=== PATIENT | female | born 1950 | race Two or more races ===

== ENCOUNTER 2016-12-29 07:10 | Day surgery (SDC) | payer MEDICAID ==
[~2016-12-29 07:10] MED LIST: Cataract Ophth Solution EYERT ONE; Lidocaine 4% 5 ML Amp EYERT ONE; Moxifloxacin 0.5% Ophth Soln 3 ML Bottle EYERT ONE; Sodium Chloride 0.9% 10 ML Syringe FLUSH PRN
[2016-12-29] MEDS ORDERED: Midazolam 1 MG/ML 2 ML SDV IV ONE (07:11)
[2016-12-29] MEDS ORDERED: Lidocaine 1% 30 ML SDV ONE (09:08)
[2016-12-29] MEDS ORDERED: Povidone-Iodine 5% Sterile Ophth Soln 30 ML Bottle EYERT ONE (09:09)
[2016-12-29] MEDS ORDERED: prednisoLONE Acetate 1% Ophth Susp 5 ML Bottle EYERT ONE (09:09)
[2016-12-29] MEDS ORDERED: Balanced Salt Solution Ophth Irrig 500 ML Bottle IOCULAR ONE (09:10)
[2016-12-29] MEDS ORDERED: EPINEPHrine 1 MG/ML SDV ONE (09:10)
[2016-12-29] MEDS ORDERED: Lidocaine 4% 5 ML Amp EYERT ONE (09:11)
[2016-12-29] MEDS ORDERED: Moxifloxacin 0.5% Ophth Soln 3 ML Bottle EYERT ONE (09:11)
--- NOTE | 2016-12-29 10:29 | PCM.OPNOTE ---
- General Post-Op/Procedure Note Date of Surgery/Procedure: 12/29/16 Operative Procedure(s): Cataract Extraction with intraocular lens implant, right eye Findings: As above Pre Op Diagnosis: Cataract right eye Post-Op Diagnosis: Same Anesthesia Technique: MAC Primary Surgeon: Waqas Hernandez Anesthesia Provider: radha Pathology: None EBL in mLs: 0 Complications: None Condition: Good Free Text/Narrative:: PROCEDURE: After the risks and benefits of the procedure were explained informed consent was obtained from the patient and the patient was taken to the operating room. The patient was given topical Lidocaine 4% drops in the right eye. The patient was then prepped and draped in the sterile [facility] fashion. A wire lid speculum was placed in the right eye. A clear cornea temporal approach was used. A 7515 [place] blade was used to make a paracentesis site around 11:00. Preservative-free Lidocaine 1% was injected intracamerally. Viscoelastic was placed in the anterior chamber. A 2.65 mm keratome blade was used to make a clear corneal incision around 9:00. A cystotome needle and Utrata forceps were used to perform continuous curvilinear capsulorhexis. Balanced Salt Solution was used to perform hydrodissection and hydrodelineation. The lens nucleus was removed using the divide and conquer phacoemulsification technique. Cumulative dissipated energy was 12.62. Remaining cortex was removed using irrigation- aspiration. Viscoelastic was placed in the capsular bag. PCBOO 19.0 diopter lens was then placed in the capsular bag. Remaining viscoelastic was removed using irrigation-aspiration. The lens was well centered in the capsular bag. The paracentesis and corneal incision were found to be water-tight. The patient was given topical Prednisolone and Vigamox drops. The speculum was removed and a shield was placed over the right eye. The patient was taken to recovery in stable condition. I certify that I was present for and performed the entire operative procedure. Waqas Hernandez M.D.
[2016-12-29 10:41] VITALS: BP 127/77
== END 2016-12-29 10:20 | disposition home or self-care (01) ==
LOC: DL.SDS 07:10
PROVIDERS: ATTEND Ophthalmology
DX: H25.813 Combined forms of age-related cataract, bilateral (principal); E11.9 Type 2 diabetes mellitus without complications; E78.5 Hyperlipidemia, unspecified; I10 Essential (primary) hypertension; E66.9 Obesity, unspecified; Z90.49 Acquired absence of other specified parts of digestive tract; Z98.51 Tubal ligation status; Z98.890 Other specified postprocedural states; Z88.8 Allergy status to other drugs, medicaments and biological substances; F17.210 Nicotine dependence, cigarettes, uncomplicated; Z79.84 Long term (current) use of oral hypoglycemic drugs; Z79.899 Other long term (current) drug therapy; Z68.30 Body mass index [BMI] 30.0-30.9, adult
CPT/HCPCS: 00142; 66984; A9270; J0171; J2250; J7050; V2632

== ENCOUNTER 2017-01-26 08:25 | Day surgery (SDC) | payer MEDICAID ==
[~2017-01-26 08:25] MED LIST changes: +Cataract Ophth Solution EYELF SCH; -Cataract Ophth Solution EYERT ONE; +Lidocaine 4% 5 ML Amp EYELF SCH; -Lidocaine 4% 5 ML Amp EYERT ONE; +Moxifloxacin 0.5% Ophth Soln 3 ML Bottle EYELF SCH; -Moxifloxacin 0.5% Ophth Soln 3 ML Bottle EYERT ONE
[2017-01-26] MEDS ORDERED: Midazolam 1 MG/ML 2 ML SDV IV ONE (08:26)
[2017-01-26] MEDS ORDERED: Sodium Chloride 0.9% 10 ML Syringe IV ONE (08:26)
[2017-01-26] MEDS ORDERED: Lidocaine 4% 5 ML Amp ONE (10:15)
[2017-01-26] MEDS ORDERED: Lidocaine 1% 30 ML SDV INJECT ONE (10:15)
[2017-01-26] MEDS ORDERED: Moxifloxacin 0.5% Ophth Soln 3 ML Bottle EYELF ONE (10:16)
[2017-01-26] MEDS ORDERED: prednisoLONE Acetate 1% Ophth Susp 5 ML Bottle EYELF ONE (10:16)
[2017-01-26] MEDS ORDERED: Povidone-Iodine 5% Sterile Ophth Soln 30 ML Bottle EYELF ONE (10:17)
[2017-01-26] MEDS ORDERED: Balanced Salt Solution Ophth Irrig 500 ML Bottle IOCULAR ONE (10:17)
[2017-01-26] MEDS ORDERED: EPINEPHrine 1 MG/ML SDV ONE (10:17)
[2017-01-26] MEDS ORDERED: Chondroitin/Hyaluronate Sodium Ophth Inj 0.5/0.55 ML Kit IOCULAR ONE ×3 (10:18)
--- NOTE | 2017-01-26 10:33 | PCM.OPNOTE ---
- General Post-Op/Procedure Note Date of Surgery/Procedure: 01/26/17 Operative Procedure(s): Cataract extraction with intraocular lens implant left eye Findings: As above Pre Op Diagnosis: Cataract left eye Post-Op Diagnosis: Same Anesthesia Technique: MAC Primary Surgeon: Waqas Hernandez Anesthesia Provider: Stiven Mahmood Pathology: None EBL in mLs: 0 Complications: None Condition: Good Free Text/Narrative:: PROCEDURE: After the risks and benefits of the procedure were explained informed consent was obtained from the patient and the patient was taken to the operating room. The patient was given topical Lidocaine 4% drops in the left eye. The patient was then prepped and draped in the sterile [facility] fashion. A wire lid speculum was placed in the left eye. A clear cornea temporal approach was used. A 7515 [place] blade was used to make a paracentesis site around 5:00. Preservative-free Lidocaine 1% was injected intracamerally. Viscoelastic was placed in the anterior chamber. A 2.65 mm keratome blade was used to make a clear corneal incision around 3:00. A cystotome needle and Utrata forceps were used to perform continuous curvilinear capsulorhexis. Balanced Salt Solution was used to perform hydrodissection and hydrodelineation. The lens nucleus was removed using the divide and conquer phacoemulsification technique. Cumulative dissipated energy was 11.16. Remaining cortex was removed using irrigation- aspiration. Viscoelastic was placed in the capsular bag. PCBOO 20.0 diopter lens was then placed in the capsular bag. Remaining viscoelastic was removed using irrigation-aspiration. The lens was well centered in the capsular bag. The paracentesis and corneal incision were found to be water-tight. The patient was given topical Prednisolone and Vigamox drops. The speculum was removed and a shield was placed over the left eye. The patient was taken to recovery in stable condition. I certify that I was present for and performed the entire operative procedure. Waqas Hernandez M.D.
[2017-01-26 11:13] VITALS: BP 146/67
== END 2017-01-26 11:10 | disposition home or self-care (01) ==
LOC: DL.SDS 08:25
PROVIDERS: ATTEND Ophthalmology
DX: H25.813 Combined forms of age-related cataract, bilateral (principal); I10 Essential (primary) hypertension; E11.9 Type 2 diabetes mellitus without complications; E78.5 Hyperlipidemia, unspecified; E66.9 Obesity, unspecified; Z90.49 Acquired absence of other specified parts of digestive tract; Z98.51 Tubal ligation status; F17.210 Nicotine dependence, cigarettes, uncomplicated; Z79.84 Long term (current) use of oral hypoglycemic drugs; Z79.899 Other long term (current) drug therapy; Z88.8 Allergy status to other drugs, medicaments and biological substances; Z68.31 Body mass index [BMI] 31.0-31.9, adult
CPT/HCPCS: 00142; 66984; A9270; J0171; J2250; J7050; V2632

== ENCOUNTER 2017-04-27 19:40 | Emergency (ER) | payer MEDICAID ==
[2017-04-27 20:27] LABS: CHLORIDE,CL 96 mmol/L (101-111); SODIUM,NA 130 mmol/L (135-145)
[2017-04-27] MEDS ORDERED: Acetaminophen 325 MG Tab PO ONE (20:42)
--- NOTE | 2017-04-27 20:58 | EDM.PDOC ---
ED HPI GENERAL MEDICAL PROBLEM - General Chief Complaint: Headache Stated Complaint: BY AMBULANCE Time Seen by Provider: 04/27/17 19:45 Source of Information: Reports: Patient History Limitations: Reports: No Limitations - History of Present Illness INITIAL COMMENTS - FREE TEXT/NARRATIVE: ED via [facility] with c/o headache for past week, reports at back of head but all over. Has not noted anything that will make it better or worse. Has not taken anything to relieve pain. Just decided tonight she should have it checked out. Denied any recent falls. No awareness of fever. Residing at [facility]. Per EMS staff there unaware that patient had called for ambulance. Headache Pain Score (Numeric/FACES): 2 - Related Data Allergies Allergy/AdvReac Type Severity Reaction Status Date / Time rosuvastatin calcium Allergy Cannot Verified 04/27/17 19:52 [From [facility]] Remember Home Meds: Home Meds Lisinopril 5 mg PO DAILY 03/28/13 [History] Haloperidol Decanoate 50 mg IM .MONTHLY 07/30/14 [History] Metoprolol Succinate 50 mg PO DAILY 08/19/15 [History] Benztropine Mesylate 1 mg PO BID 09/26/15 [History] Furosemide [Lasix] 20 mg PO DAILY 09/26/15 [History] Pantoprazole Sodium [Protonix] 20 mg PO DAILY 09/26/15 [History] atorvaSTATin Calcium [Atorvastatin Calcium] 20 mg PO DAILY 09/26/15 [History] metFORMIN [Glucophage XR] 500 mg PO BID 09/26/15 [History] Budesonide/Formoterol [Symbicort 160-4.5 MCG] 2 puff INH BID 11/04/15 [History] Isosorbide Mononitrate [Imdur] 30 mg PO DAILY 11/04/15 [History] Insulin Detemir [Levemir Flextouch] 50 units SQ BID 11/19/15 [History] Albuterol [IJD: Albuterol] 1 vial INH Q4H PRN 12/29/16 [History] Dextromethorphan/guaiFENesin [Robitussin DM] 1 dose PO QID PRN 12/29/16 [History ] Ferrous Fumarate [Ferrocite] 325 tab PO DAILY 12/29/16 [History] Insulin Aspart [NovoLOG] 15 units SQ TIDMEALS 12/29/16 [History] Vitamin E 1 cap PO DAILY 12/29/16 [History] Past Medical History HEENT History: Reports: Cataract, Other (See Below) Other HEENT History: UPPER AND LOWER DENTURES Cardiovascular History: Reports: CAD, Heart Failure, High Cholesterol, Hypertension Respiratory History: Reports: COPD, Intubation, Previous, Pneumonia, Recurrent, Sleep Apnea, SOB Other Respiratory History: Emphysema Gastrointestinal History: Reports: Chronic Constipation, Diverticulosis, GERD Other Gastrointestinal History: questionable GI bleed 11/04/15 Genitourinary History: Reports: UTI, Recurrent Other Genitourinary History: blood infection. 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: Musculoskeletal History: Reports: Osteoarthritis Neurological History: Reports: CVA, Neuropathy, Diabetic Psychiatric History: Reports: Addiction, Anxiety, Depression, Psychosis, Other ( See Below) Other Psychiatric History: nicotine addiction Endocrine/Metabolic History: Reports: Diabetes, Type II, IDDM, Obesity/BMI 30+ Hematologic History: Reports: Anemia Immunologic History: Reports: None Oncologic (Cancer) History: Reports: None Dermatologic History: Reports: None - Past Surgical History Head Surgeries/Procedures: Reports: None HEENT Surgical History: Reports: Cataract Surgery Cardiovascular Surgical History: Reports: None, Vascular Surgery Other Cardiovascular Surgeries/Procedures: varicose vein stripping Respiratory Surgical History: Reports: None GI Surgical History: Reports: Appendectomy, Cholecystectomy, Colonoscopy, EGD Female Surgical History: Reports: D&C Neurological Surgical History: Reports: None Musculoskeletal Surgical History: Reports: Other (See Below) Other Musculoskeletal Surgeries/Procedures:: toe surg, wrist osteotomy Oncologic Surgical History: Reports: None Dermatological Surgical History: Reports: None Social & Family History - Family History Family Medical History: Noncontributory Cardiac: Reports: Afib, CAD, Heart Failure, High Cholesterol, Hypertension, [place] Respiratory: Reports: Asthma, COPD GI: Reports: Cholelithiasis : Reports: Renal Disease/Insufficiency Neurological: Reports: CVA Psychiatric: Reports: Anxiety, Depression Endocrine/Metabolic: Reports: Diabetes, type II, Obesity/MBI 30+ - Tobacco Use Smoking Status *Q: Current Every Day Smoker Years of Tobacco use: 30 Packs/Tins Daily: 1.5 Used Tobacco, but Quit: No Second Hand Smoke Exposure: Yes - Caffeine Use Caffeine Use: Reports: Coffee - Alcohol Use Days Per Week of Alcohol Use: 3 Number of Drinks Per Day: 2 Total Drinks Per Week: 6 - Recreational Drug Use Recreational Drug Use: No - Living Situation & Occupation Living situation: Reports: Alone Occupation: Disabled ED ROS GENERAL - Review of Systems Review Of Systems: See Below Constitutional: Reports: No Symptoms HEENT: Reports: No Symptoms Respiratory: Reports: No Symptoms Cardiovascular: Reports: No Symptoms GI/Abdominal: Reports: No Symptoms Musculoskeletal: Reports: No Symptoms Skin: Reports: No Symptoms Neurological: Reports: Headache (general rates 2/10 for past week, ) - Physical Exam Exam: See Below Exam Limited By: No Limitations General Appearance: Alert, No Apparent Distress Eye Exam: Bilateral Eye: EOMI, Normal Fundi, PERRL Ears: Normal External Exam Nose: Normal Inspection Throat/Mouth: Normal Lips. No: Normal Teeth (absent) Head Exam: Atraumatic, Normocephalic. No: Scalp Tenderness, Facial Tenderness, Sinus Tenderness Neck: Normal Inspection, Full Range of Motion. No: Tender Lateral, Tender Midline Respiratory/Chest: Lungs Clear, Normal Breath Sounds. No: No Respiratory Distress Cardiovascular: Normal Peripheral Pulses, Regular Rate, Rhythm, No Edema GI/Abdominal: Normal Bowel Sounds, Soft, Non-Tender Neuro Exam (Abbreviated): Alert, Oriented, Normal Cognition, No Motor/Sensory Deficits Back Exam: Normal Inspection Psychiatric: Normal Affect Skin Exam: Warm, Dry, Intact, Normal Color Course - Vital Signs Last Recorded V/S: Last Vital Signs Temp 98.5 F 04/27/17 21:05 Pulse 91 04/27/17 21:05 Resp 18 04/27/17 21:05 BP 136/56 L 04/27/17 21:05 Pulse Ox 95 04/27/17 21:05 - Orders/Labs/Meds Labs: Laboratory Tests 04/27/17 04/27/17 04/27/17 Range/Units 20:02 20:02 20:23 WBC 13.3 H (5.0-10.0) 10^3/uL RBC 4.73 (4.2-5.4) 10^6/uL Hgb 11.8 L D (12.0-16.0) g/dL Hct 36.4 L (37.0-47.0) % MCV 77.0 L D (80-100) fL MCH 24.9 L (27.0-34.0) pg MCHC 32.4 L (33.0-35.0) g/dL Plt Count 322 D (150-450) 10^3/uL Neut % (Auto) 65.3 (42.2-75.2) % Lymph % (Auto) 24.3 (20.5-50.1) % [place] % (Auto) 8.2 H (2-8) % Eos % (Auto) 1.7 (1.0-3.0) % Baso % (Auto) 0.5 (0.0-1.0) % Sodium 130 L (135-145) mmol/L Potassium 3.8 (3.6-5.0) mmol/L Chloride 96 L (101-111) mmol/L Carbon Dioxide 25.0 (21.0-31.0) mmol/L Anion Gap 12.8 BUN 12 (7-18) mg/dL Creatinine 0.9 (0.6-1.3) mg/dL Est Cr Clr Drug Dosing 59.12 mL/min Estimated GFR (MDRD) > 60 BUN/Creatinine Ratio 13.33 Glucose 115 H (74-105) mg/dL Calcium 8.5 (8.4-10.2) mg/dl Total Bilirubin 0.3 (0.2-1.0) mg/dL AST 23 (10-42) IU/L ALT 19 (10-60) IU/L Alkaline Phosphatase 74 (42-121) IU/L Total Protein 7.1 (6.7-8.2) g/dl Albumin 3.8 (3.2-5.5) g/dl Globulin 3.3 Albumin/Globulin Ratio 1.15 Urine Color Yellow (YELLOW) Urine Appearance Clear (CLEAR) Urine pH 6.5 (5.0-9.0) Ur Specific [place] 1.010 (1.005-1.030) Urine Protein Negative (NEGATIVE) Urine Glucose (UA) Negative (NEGATIVE) Urine Ketones Negative (NEGATIVE) Urine Occult Blood Negative (NEGATIVE) Urine Nitrite Negative (NEGATIVE) Urine Bilirubin Negative (NEGATIVE) Urine Urobilinogen 0.2 (0.2-1.0) mg/dL Ur Leukocyte Esterase Negative (NEGATIVE) Urine RBC 0-5 /HPF Urine WBC 0-5 (0-5/HPF) /HPF Ur Epithelial Cells Rare /HPF Urine Bacteria Rare (0-FEW/HPF) /HPF Meds: Medications Discontinued Medications Generic Name Dose Route Start Last Admin Trade Name Brian PRN Reason Stop Dose Admin Acetaminophen 650 mg 04/27/17 20:42 04/27/17 20:55 Tylenol PO 04/27/17 20:43 650 mg NOW ONE Administration - Radiology Interpretation Free Text/Narrative:: Head CT, No acute process Departure - Departure Time of Disposition: 20:53 Disposition: DC/Tfer to Skilled Nursing [facility] 65 Condition: Good Clinical Impression: Headache Qualifiers: Headache type: unspecified Headache chronicity pattern: unspecified pattern Intractability: not intractable Qualified Code(s): R51 - Headache - Discharge Information Instructions: General Headache Without Cause Referrals: PCP,Unobtain [Primary Care Provider] - Forms: ED Department Discharge Additional Instructions: Tylenol 650mg every 4 hours as needed for headache complaint, not to exceed 3 Grams in 24 hours clinic follow up 2-3 days if not improving continue current medications
[2017-04-27 21:06] VITALS: BP 136/56
== END 2017-04-27 21:20 ==
LOC: DL.ED 19:40
DX: R51 Headache (principal); I11.0 Hypertensive heart disease with heart failure; I50.9 Heart failure, unspecified; E11.40 Type 2 diabetes mellitus with diabetic neuropathy, unspecified; F17.210 Nicotine dependence, cigarettes, uncomplicated; J44.9 Chronic obstructive pulmonary disease, unspecified; Z88.8 Allergy status to other drugs, medicaments and biological substances; Z79.899 Other long term (current) drug therapy; Z79.84 Long term (current) use of oral hypoglycemic drugs; Z79.4 Long term (current) use of insulin
CPT/HCPCS: 36415; 70450; 80053; 81001; 85025; 99284; A9270-GY

== ENCOUNTER 2018-08-11 18:48 | Emergency (ER) | payer MEDICARE, MEDICAID ==
[2018-08-11 18:57] VITALS: BP 172/82
--- NOTE | 2018-08-11 19:23 | EDM.PDOC ---
ED HPI GENERAL MEDICAL PROBLEM - General Chief Complaint: General Stated Complaint: HARD TIME BREATHING Time Seen by Provider: 08/11/18 19:19 Source of Information: Reports: Patient History Limitations: Reports: No Limitations - History of Present Illness INITIAL COMMENTS - FREE TEXT/NARRATIVE: c/o sob all afternoon, diabetic, did eat but feel weak no energy, also been having memory lost past month. no real chest pain or abd pain but feels nauseous on-off, denies vertigo. unable to describe how she feels. - Related Data Allergies Allergy/AdvReac Type Severity Reaction Status Date / Time rosuvastatin calcium Allergy Cannot Verified 08/11/18 18:52 [From Crestor] Remember Home Meds: Home Meds Lisinopril 5 mg PO DAILY 03/28/13 [History] Haloperidol Decanoate 50 mg IM .MONTHLY 07/30/14 [History] Metoprolol Succinate 50 mg PO DAILY 08/19/15 [History] Benztropine Mesylate 1 mg PO BID 09/26/15 [History] Furosemide [Lasix] 20 mg PO DAILY 09/26/15 [History] Pantoprazole Sodium [Protonix] 20 mg PO DAILY 09/26/15 [History] atorvaSTATin Calcium [Atorvastatin Calcium] 20 mg PO DAILY 09/26/15 [History] metFORMIN [Glucophage XR] 500 mg PO BID 09/26/15 [History] Budesonide/Formoterol [Symbicort 160-4.5 MCG] 2 puff INH BID 11/04/15 [History] Isosorbide Mononitrate [Imdur] 30 mg PO DAILY 11/04/15 [History] Insulin Detemir [Levemir Flextouch] 50 units SQ BID 11/19/15 [History] Albuterol [IJD: Albuterol] 1 vial INH Q4H PRN 12/29/16 [History] Dextromethorphan/guaiFENesin [Robitussin DM] 1 dose PO QID PRN 12/29/16 [History ] Ferrous Fumarate [Ferrocite] 325 tab PO DAILY 12/29/16 [History] Insulin Aspart [NovoLOG] 15 units SQ TIDMEALS 12/29/16 [History] Vitamin E 1 cap PO DAILY 12/29/16 [History] Past Medical History HEENT History: Reports: Cataract, Other (See Below) Other HEENT History: UPPER AND LOWER DENTURES Cardiovascular History: Reports: CAD, Heart Failure, High Cholesterol, Hypertension Respiratory History: Reports: COPD, Intubation, Previous, Pneumonia, Recurrent, Sleep Apnea, SOB Other Respiratory History: Emphysema Gastrointestinal History: Reports: Chronic Constipation, Diverticulosis, GERD Other Gastrointestinal History: questionable GI bleed 11/04/15 Genitourinary History: Reports: UTI, Recurrent Other Genitourinary History: blood infection. 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: Musculoskeletal History: Reports: Osteoarthritis Neurological History: Reports: CVA, Neuropathy, Diabetic Psychiatric History: Reports: Addiction, Anxiety, Depression, Psychosis, Other ( See Below) Other Psychiatric History: nicotine addiction Endocrine/Metabolic History: Reports: Diabetes, Type II, IDDM, Obesity/BMI 30+ Hematologic History: Reports: Anemia Immunologic History: Reports: None Oncologic (Cancer) History: Reports: None Dermatologic History: Reports: None - Past Surgical History Head Surgeries/Procedures: Reports: None HEENT Surgical History: Reports: Cataract Surgery Cardiovascular Surgical History: Reports: None, Vascular Surgery Other Cardiovascular Surgeries/Procedures: varicose vein stripping Respiratory Surgical History: Reports: None GI Surgical History: Reports: Appendectomy, Cholecystectomy, Colonoscopy, EGD Female Surgical History: Reports: D&C Neurological Surgical History: Reports: None Musculoskeletal Surgical History: Reports: Other (See Below) Other Musculoskeletal Surgeries/Procedures:: toe surg, wrist osteotomy Oncologic Surgical History: Reports: None Dermatological Surgical History: Reports: None Social & Family History - Family History Family Medical History: Noncontributory Cardiac: Reports: Afib, CAD, Heart Failure, High Cholesterol, Hypertension, [place] Respiratory: Reports: Asthma, COPD GI: Reports: Cholelithiasis : Reports: Renal Disease/Insufficiency Neurological: Reports: CVA Psychiatric: Reports: Anxiety, Depression Endocrine/Metabolic: Reports: Diabetes, type II, Obesity/MBI 30+ - Tobacco Use Smoking Status *Q: Current Every Day Smoker Years of Tobacco use: 40 Packs/Tins Daily: 1 Second Hand Smoke Exposure: No - Caffeine Use Caffeine Use: Reports: Coffee - Recreational Drug Use Recreational Drug Use: No - Living Situation & Occupation Living situation: Reports: Alone Occupation: Disabled ED ROS GENERAL - Review of Systems Review Of Systems: ROS reveals no pertinent complaints other than HPI. ED EXAM, GENERAL - Physical Exam Exam: See Below Exam Limited By: No Limitations General Appearance: Alert, WD/WN, No Apparent Distress, Other (distraught) Eye Exam: Bilateral Eye: PERRL (pupils ess ER @ 4mm) Ears: Hearing Grossly Normal Throat/Mouth: Normal Voice, No Airway Compromise Head: Atraumatic Neck: Non-Tender, Full Range of Motion Respiratory/Chest: No Respiratory Distress Cardiovascular: Regular Rate, Rhythm GI/Abdominal: Soft, Non-Tender Neurological: Alert, Oriented, Normal Cognition, Normal Gait, No Motor/Sensory Deficits Psychiatric: Flat Affect Skin Exam: Warm, Dry, Normal Color Lymphatic: No Adenopathy Course - Vital Signs Last Recorded V/S: Last Vital Signs Temp 35.6 C 08/11/18 18:53 Pulse Resp 15 08/11/18 18:53 BP 172/82 H 08/11/18 18:53 Pulse Ox 98 08/11/18 18:53 - Orders/Labs/Meds Orders: Active Orders 24 hr Category Date Time Status EKG Documentation Completion [RC] STAT Care 08/11/18 19:17 Active CULTURE URINE [RM] Stat Lab 08/11/18 20:16 Received Labs: Laboratory Tests 08/11/18 08/11/18 08/11/18 Range/Units 18:55 19:29 19:29 WBC 12.6 H (5.0-10.0) 10^3/uL RBC 5.04 (4.2-5.4) 10^6/uL Hgb 12.1 (12.0-16.0) g/dL Hct 37.7 (37.0-47.0) % MCV 74.8 L (80-100) fL MCH 24.0 L (27.0-34.0) pg MCHC 32.1 L (33.0-35.0) g/dL Plt Count 400 D (150-450) 10^3/uL Neut % (Auto) 73.6 (42.2-75.2) % Lymph % (Auto) 18.0 L (20.5-50.1) % [place] % (Auto) 6.5 (2-8) % Eos % (Auto) 1.4 (1.0-3.0) % Baso % (Auto) 0.5 (0.0-1.0) % D-Dimer, Quantitative 279 (0-400) ng/mL Sodium (135-145) mmol/L Potassium (3.6-5.0) mmol/L Chloride (101-111) mmol/L Carbon Dioxide (21.0-31.0) mmol/L Anion Gap BUN (7-18) mg/dL Creatinine (0.6-1.3) mg/dL Est Cr Clr Drug Dosing mL/min Estimated GFR (MDRD) BUN/Creatinine Ratio Glucose (74-105) mg/dL POC Glucose 183 H (70-105) mg/dl Calcium (8.4-10.2) mg/dl Total Bilirubin (0.2-1.0) mg/dL AST (10-42) IU/L ALT (10-60) IU/L Alkaline Phosphatase (42-121) IU/L Troponin I (0.00-0.02) ng/ml B-Natriuretic Peptide (0-100) pg/ml Total Protein (6.7-8.2) g/dl Albumin (3.2-5.5) g/dl Globulin Albumin/Globulin Ratio Urine Color (YELLOW) Urine Appearance (CLEAR) Urine pH (5.0-9.0) Ur Specific [place] (1.005-1.030) Urine Protein (NEGATIVE) Urine Glucose (UA) (NEGATIVE) Urine Ketones (NEGATIVE) Urine Occult Blood (NEGATIVE) Urine Nitrite (NEGATIVE) Urine Bilirubin (NEGATIVE) Urine Urobilinogen (0.2-1.0) mg/dL Ur Leukocyte Esterase (NEGATIVE) Urine RBC /HPF Urine WBC (0-5/HPF) /HPF Ur Epithelial Cells (NOT SEEN) /HPF Amorphous Sediment (NOT SEEN) /HPF Urine Bacteria (0-FEW/HPF) /HPF Urine Mucus (NOT SEEN) /LPF 08/11/18 08/11/18 Range/Units 19:29 20:16 WBC (5.0-10.0) 10^3/uL RBC (4.2-5.4) 10^6/uL Hgb (12.0-16.0) g/dL Hct (37.0-47.0) % MCV (80-100) fL MCH (27.0-34.0) pg MCHC (33.0-35.0) g/dL Plt Count (150-450) 10^3/uL Neut % (Auto) (42.2-75.2) % Lymph % (Auto) (20.5-50.1) % [place] % (Auto) (2-8) % Eos % (Auto) (1.0-3.0) % Baso % (Auto) (0.0-1.0) % D-Dimer, Quantitative (0-400) ng/mL Sodium 130 L (135-145) mmol/L Potassium 3.9 (3.6-5.0) mmol/L Chloride 96 L (101-111) mmol/L Carbon Dioxide 21.0 (21.0-31.0) mmol/L Anion Gap 16.9 BUN 11 (7-18) mg/dL Creatinine 0.8 (0.6-1.3) mg/dL Est Cr Clr Drug Dosing 49.69 mL/min Estimated GFR (MDRD) > 60 BUN/Creatinine Ratio 13.75 Glucose 177 H (74-105) mg/dL POC Glucose (70-105) mg/dl Calcium 8.6 (8.4-10.2) mg/dl Total Bilirubin 0.5 (0.2-1.0) mg/dL AST 27 (10-42) IU/L ALT 21 (10-60) IU/L Alkaline Phosphatase 95 (42-121) IU/L Troponin I < 0.02 (0.00-0.02) ng/ml B-Natriuretic Peptide 55 (0-100) pg/ml Total Protein 7.7 (6.7-8.2) g/dl Albumin 4.0 (3.2-5.5) g/dl Globulin 3.7 Albumin/Globulin Ratio 1.08 Urine Color Yellow (YELLOW) Urine Appearance Cloudy (CLEAR) Urine pH 6.0 (5.0-9.0) Ur Specific [place] 1.010 (1.005-1.030) Urine Protein Negative (NEGATIVE) Urine Glucose (UA) Negative (NEGATIVE) Urine Ketones Negative (NEGATIVE) Urine Occult Blood Trace-intact H (NEGATIVE) Urine Nitrite Positive H (NEGATIVE) Urine Bilirubin Negative (NEGATIVE) Urine Urobilinogen 0.2 (0.2-1.0) mg/dL Ur Leukocyte Esterase Large H (NEGATIVE) Urine RBC 5-10 H /HPF Urine WBC >100 H (0-5/HPF) /HPF Ur Epithelial Cells Rare (NOT SEEN) /HPF Amorphous Sediment Occasional (NOT SEEN) /HPF Urine Bacteria Many H (0-FEW/HPF) /HPF Urine Mucus Not seen (NOT SEEN) /LPF Meds: Medications Discontinued Medications Generic Name Dose Route Start Last Admin Trade Name Brian PRN Reason Stop Dose Admin Ceftriaxone Sodium 1 gm/ 50 mls @ 50 mls/hr 08/11/18 21:03 08/11/18 21:10 Sodium Chloride IV 08/11/18 22:02 50 mls/hr ONETIME ONE Administration - Re-Assessments/Exams Free Text/Narrative Re-Assessment/Exam: 08/11/18 21:04 results discussed with pt. Departure - Departure Time of Disposition: 22:09 Disposition: Home, Self-Care 01 Condition: Good Clinical Impression: UTI (urinary tract infection) Qualifiers: Urinary tract infection type: site unspecified Hematuria presence: without hematuria Qualified Code(s): N39.0 - Urinary tract infection, site not specified - Discharge Information Instructions: Urinary Tract Infection, Adult, [id number] Referrals: PCP,None [Primary Care Provider] - Forms: ED Department Discharge Additional Instructions: 1) drink lots of liquids 2) take tylenol or motrin as needed for fever 3) follow up at clinic rx given; keflex 250mg qid x 40 - My Orders Last 24 Hours: My Active Orders 08/11/18 19:17 EKG Documentation Completion [RC] STAT 08/11/18 20:16 CULTURE URINE [RM] Stat - Assessment/Plan Last 24 Hours: My Active Orders 08/11/18 19:17 EKG Documentation Completion [RC] STAT 08/11/18 20:16 CULTURE URINE [RM] Stat
[2018-08-11 19:55] LABS: ANION GAP 16.9; CHLORIDE,CL 96 mmol/L (101-111); SODIUM,NA 130 mmol/L (135-145)
[2018-08-11] MEDS ORDERED: cefTRIAXone 1 GM in Sodium Chloride 0.9% 50 ML IV ONE (21:03)
== END 2018-08-11 22:13 | disposition home or self-care (01) ==
LOC: DL.ED 18:48
DX: N39.0 Urinary tract infection, site not specified (principal); I11.0 Hypertensive heart disease with heart failure; I50.9 Heart failure, unspecified; I25.10 Atherosclerotic heart disease of native coronary artery without angina pectoris; E11.40 Type 2 diabetes mellitus with diabetic neuropathy, unspecified; F41.9 Anxiety disorder, unspecified; F32.9 Major depressive disorder, single episode, unspecified; K21.9 Gastro-esophageal reflux disease without esophagitis; Z79.4 Long term (current) use of insulin; Z79.899 Other long term (current) drug therapy
CPT/HCPCS: 36415; 70450; 71045; 80053; 81001; 82962; 83880; 84484; 85025; 85379; 87086; 87088; 87186; 93005; 96365; 99285; J0696; J7050

== ENCOUNTER 2020-03-20 22:06 | Emergency (ER) | payer MEDICARE, MEDICAID ==
--- NOTE | 2020-03-20 22:25 | CR ---
PROCEDURE INFORMATION: Exam: XR Chest, 1 View Exam date and time: 03/20/2020 10:14 PM Age: 69 years old Clinical indication: Other: SOB TECHNIQUE: Imaging protocol: XR of the chest Views: 1 view. Total images: 1 COMPARISON: CR Chest 1V Frontal 09/10/2018 1:59 PM FINDINGS: Limitations: Overlying soft tissues limit evaluation. Lungs: Unremarkable. No consolidation. Pleural spaces: Unremarkable. No pleural effusion. No pneumothorax. Heart/Mediastinum: Unremarkable. No cardiomegaly. Bones/joints: Unremarkable. IMPRESSION: No acute process.
[2020-03-20 22:30] LABS: ANION GAP 17.7 mEq/L (7-13); CHLORIDE,CL 97 mmol/L (98-107); SODIUM,NA 135 mmol/L (136-145)
[2020-03-20] MEDS ORDERED: methylPREDNISolone Sodium Succinate 125 MG/2 ML SDV IVPUSH ONE (22:48)
[2020-03-20 23:08] VITALS: BP 153/71; PULSE 83
[2020-03-20] MEDS ORDERED: Levofloxacin 500 MG Tab PO ONE (23:14)
--- NOTE | 2020-03-20 23:23 | EDM.PDOC ---
ED HPI GENERAL MEDICAL PROBLEM - General Chief Complaint: Respiratory Problem Stated Complaint: [facility] Time Seen by Provider: 03/20/20 22:10 Source of Information: Reports: Patient, RN History Limitations: Reports: No Limitations - History of Present Illness INITIAL COMMENTS - FREE TEXT/NARRATIVE: ED via [facility] with c/o SOB, Onset this dane, smoker, chronic cough. No reported fever or chills, No nausea or vomiting. Denies urinary sx. COVID in December. Smoker 5 per day. - Related Data Allergies Allergy/AdvReac Type Severity Reaction Status Date / Time codeine Allergy Cannot Verified 03/20/20 21:56 Remember morphine Allergy Cannot Verified 03/20/20 21:56 Remember oxycodone Allergy Cannot Verified 03/20/20 21:56 Remember rosuvastatin calcium Allergy Cannot Verified 03/20/20 21:56 [From Crestor] Remember Home Meds: Home Meds Lisinopril 5 mg PO DAILY 03/28/13 [History] Haloperidol Decanoate 50 mg IM .MONTHLY 07/30/14 [History] Metoprolol Succinate 50 mg PO DAILY 08/19/15 [History] Benztropine Mesylate 0.5 mg PO TID 09/26/15 [History] Furosemide [Lasix] 20 mg PO DAILY 09/26/15 [History] Pantoprazole Sodium [Protonix] 20 mg PO DAILY 09/26/15 [History] atorvaSTATin Calcium [Atorvastatin Calcium] 20 mg PO DAILY 09/26/15 [History] metFORMIN [Glucophage XR] 500 mg PO BID 09/26/15 [History] Budesonide/Formoterol [Symbicort 160-4.5 MCG] 2 puff INH BID 11/04/15 [History] Isosorbide Mononitrate [Imdur] 30 mg PO DAILY 11/04/15 [History] Insulin Detemir [Levemir Flextouch] 57 units SQ BID 11/19/15 [History] Albuterol [IJD: Albuterol] 1 vial INH Q4H PRN 12/29/16 [History] Insulin Aspart [NovoLOG] 22 units SQ TIDMEALS 12/29/16 [History] Vitamin E 1 cap PO DAILY 12/29/16 [History] Past Medical History HEENT History: Reports: Cataract, Other (See Below) Other HEENT History: UPPER AND LOWER DENTURES Cardiovascular History: Reports: CAD, Heart Failure, High Cholesterol, Hypertension Respiratory History: Reports: COPD, Intubation, Previous, Pneumonia, Recurrent, Sleep Apnea, SOB Other Respiratory History: Emphysema Gastrointestinal History: Reports: Chronic Constipation, Diverticulosis, GERD Other Gastrointestinal History: questionable GI bleed 11/04/15 Genitourinary History: Reports: UTI, Recurrent Other Genitourinary History: blood infection. States it may have been from a UTI [employer] History: Reports: Musculoskeletal History: Reports: Osteoarthritis Neurological History: Reports: CVA, Neuropathy, Diabetic Psychiatric History: Reports: Addiction, Anxiety, Depression, Psychosis, Other (See Below) Other Psychiatric History: nicotine addiction Endocrine/Metabolic History: Reports: Diabetes, Type II, IDDM, Obesity/BMI 30+ Hematologic History: Reports: Anemia Immunologic History: Reports: None Oncologic (Cancer) History: Reports: None Dermatologic History: Reports: None - Infectious Disease History Infectious Disease History: Reports: Novel Coronavirus - Past Surgical History Head Surgeries/Procedures: Reports: None HEENT Surgical History: Reports: Cataract Surgery Cardiovascular Surgical History: Reports: None, Vascular Surgery Other Cardiovascular Surgeries/Procedures: varicose vein stripping Respiratory Surgical History: Reports: None GI Surgical History: Reports: Appendectomy, Cholecystectomy, Colonoscopy, EGD Female Surgical History: Reports: D&C Neurological Surgical History: Reports: None Musculoskeletal Surgical History: Reports: Other (See Below) Other Musculoskeletal Surgeries/Procedures:: toe surg, wrist osteotomy Oncologic Surgical History: Reports: None Dermatological Surgical History: Reports: None Social & Family History - Family History Family Medical History: No Pertinent Family History Cardiac: Reports: Afib, CAD, Heart Failure, High Cholesterol, Hypertension, [place] Respiratory: Reports: Asthma, COPD GI: Reports: Cholelithiasis : Reports: Renal Disease/Insufficiency Neurological: Reports: CVA Psychiatric: Reports: Anxiety, Depression Endocrine/Metabolic: Reports: Diabetes, type II, Obesity/MBI 30+ - Tobacco Use Tobacco Use Status *Q: Current Every Day Tobacco User Years of Tobacco use: 50 Packs/Tins Daily: 0.5 - Caffeine Use Caffeine Use: Reports: None - Recreational Drug Use Recreational Drug Use: No - Living Situation & Occupation Living situation: Reports: Alone Occupation: Disabled ED ROS GENERAL - Review of Systems Review Of Systems: Comprehensive ROS is negative, except as noted in HPI. ED EXAM, GENERAL - Physical Exam Exam: See Below Exam Limited By: No Limitations General Appearance: Alert, No Apparent Distress, Obese Eye Exam: Bilateral Eye: EOMI Ears: Normal External Exam, Hearing Grossly Normal Nose: Normal Inspection Throat/Mouth: Normal Inspection Head: Atraumatic, Normocephalic Neck: Normal Inspection Respiratory/Chest: No Respiratory Distress, Decreased Breath Sounds, Rales (bilateral bases, improve with cough), Other (occasional dry cough) Cardiovascular: Regular Rate, Rhythm, No Edema GI/Abdominal: Normal Bowel Sounds, Soft, Non-Tender Back Exam: Full Range of Motion Extremities: Normal Inspection, Normal Range of Motion Neurological: Alert Psychiatric: Normal Affect, Normal Mood Skin Exam: Warm, Dry, Intact, Normal Color Course - Vital Signs Last Recorded V/S: Last Vital Signs Temp 96.6 F L 03/20/20 21:56 Pulse 83 03/20/20 22:45 Resp 24 H 03/20/20 21:56 BP 153/71 H 03/20/20 22:45 Pulse Ox 97 03/20/20 21:56 - Orders/Labs/Meds Orders: Active Orders 24 hr Category Date Time Status EKG Documentation Completion [RC] STAT Care 03/20/20 21:52 Active CULTURE URINE [RM] Urgent Lab 03/20/20 22:48 Received Labs: Laboratory Tests 03/20/20 03/20/20 03/20/20 Range/Units 22:00 22:00 22:48 WBC 11.9 H (5.0-10.0) 10^3/uL RBC 4.98 (4.2-5.4) 10^6/uL Hgb 13.9 D (12.0-16.0) g/dL Hct 41.2 (37.0-47.0) % MCV 82.7 D (80-100) fL MCH 27.9 (27.0-34.0) pg MCHC 33.7 (33.0-35.0) g/dL Plt Count 309 (150-450) 10^3/uL Neut % (Auto) 67.1 (42.2-75.2) % Lymph % (Auto) 23.3 (20.5-50.1) % [place] % (Auto) 7.3 (2-8) % Eos % (Auto) 1.9 (1.0-3.0) % Baso % (Auto) 0.4 (0.0-1.0) % Sodium 135 L (136-145) mmol/L Potassium 3.7 (3.5-5.1) mmol/L Chloride 97 L (98-107) mmol/L Carbon Dioxide 24 (21-32) mmol/L Anion Gap 17.7 H (7-13) mEq/L BUN 10 (7-18) mg/dL Creatinine 1.00 (0.55-1.02) mg/dL Est Cr Clr Drug Dosing 51.10 mL/min Estimated GFR (MDRD) 55 BUN/Creatinine Ratio 10.0 (No establ ref range) Glucose 217 H (74-99) mg/dL Calcium 8.8 (8.5-10.1) mg/dL Magnesium 1.7 L (1.8-2.4) mg/dL Total Bilirubin 0.3 (0.2-1.0) mg/dL AST 16 (15-37) U/L ALT 28 (14-59) U/L Alkaline Phosphatase 108 (46-116) U/L Troponin I < 0.017 (0.000-0.056) ng/mL B-Natriuretic Peptide 47 (0-100) pg/ml Total Protein 7.8 (6.4-8.2) g/dL Albumin 3.7 (3.4-5.0) g/dL Globulin 4.1 Albumin/Globulin Ratio 0.9 Amylase 23 L (25-115) U/L Lipase 142 (73-393) U/L Urine Color Yellow (YELLOW) Urine Appearance Slightly cloudy (CLEAR) Urine pH 7.0 (5.0-9.0) Ur Specific [place] 1.010 (1.005-1.030) Urine Protein Negative (NEGATIVE) Urine Glucose (UA) Negative (NEGATIVE) Urine Ketones Negative (NEGATIVE) Urine Occult Blood Negative (NEGATIVE) Urine Nitrite Positive H (NEGATIVE) Urine Bilirubin Negative (NEGATIVE) Urine Urobilinogen 0.2 (0.2-1.0) mg/dL Ur Leukocyte Esterase Moderate H (NEGATIVE) Urine RBC Not seen /HPF Urine WBC Packed H (0-5/HPF) /HPF Ur Epithelial Cells Rare (NOT SEEN) /HPF Amorphous Sediment Few (NOT SEEN) /HPF Urine Bacteria Many H (0-FEW/HPF) /HPF Urine Mucus Few H (NOT SEEN) /LPF Meds: Medications Discontinued Medications Generic Name Dose Route Start Last Admin Trade Name Brian PRN Reason Stop Dose Admin Levofloxacin 500 mg 03/20/20 23:14 03/20/20 23:18 Levaquin PO 03/20/20 23:15 500 mg ONETIME ONE Administration Methylprednisolone Sodium Succinate 125 mg 03/20/20 22:48 03/20/20 22:57 Solu-Medrol IVPUSH 03/20/20 22:49 125 mg ONETIME ONE Administration Departure - Departure Time of Disposition: 23:28 Disposition: DC/Tfer to [facility] Condition: Good Clinical Impression: COLD, Chronic obstructive lung disease UTI (urinary tract infection) Qualifiers: Urinary tract infection type: site unspecified Hematuria presence: without hematuria Qualified Code(s): N39.0 - Urinary tract infection, site not specified - Discharge Information *PRESCRIPTION DRUG MONITORING PROGRAM REVIEWED*: No *COPY OF PRESCRIPTION DRUG MONITORING REPORT IN PATIENT NIKI: No Instructions: Urinary Tract Infection, Adult, [id number] Forms: ED Department Discharge Additional Instructions: Continue current medications Albuterol Neb 2.5mg every 4 hours as needed for SOB, cough or wheeze Levaquin 500mg one daily for one week for TI Follow up in clinic one week Urgent follow up if symptoms worsen, weakness confusion, fever, not tolerating food or liquids. Sepsis Event Note (ED) - Evaluation Sepsis Screening Result: No Definite Risk - Focused Exam Vital Signs: Vital Signs Temp Pulse Resp BP Pulse Ox 03/20/20 22:45 83 153/71 H 03/20/20 22:15 157/66 H 03/20/20 21:56 96.6 F L 92 24 H 187/76 H 97 - My Orders Last 24 Hours: My Active Orders 03/20/20 21:52 EKG Documentation Completion [RC] STAT 03/20/20 22:48 CULTURE URINE [RM] Urgent - Assessment/Plan Last 24 Hours: My Active Orders 03/20/20 21:52 EKG Documentation Completion [RC] STAT 03/20/20 22:48 CULTURE URINE [RM] Urgent
== END 2020-03-20 22:39 ==
LOC: DL.ED 22:06
DX: J44.9 Chronic obstructive pulmonary disease, unspecified (principal); N39.0 Urinary tract infection, site not specified; E66.9 Obesity, unspecified; I11.0 Hypertensive heart disease with heart failure; I50.9 Heart failure, unspecified; I25.10 Atherosclerotic heart disease of native coronary artery without angina pectoris; E11.40 Type 2 diabetes mellitus with diabetic neuropathy, unspecified; Z88.5 Allergy status to narcotic agent; Z88.8 Allergy status to other drugs, medicaments and biological substances; K21.9 Gastro-esophageal reflux disease without esophagitis; Z68.33 Body mass index [BMI] 33.0-33.9, adult; Z79.4 Long term (current) use of insulin; Z79.899 Other long term (current) drug therapy
CPT/HCPCS: 36415; 71045; 80053; 81001; 82150; 83690; 83735; 83880; 84484; 85025; 87086; 87088; 87186; 93005; 96374; 99283; 99285-25; A9270-GY; J2930

== ENCOUNTER 2023-12-24 21:58 | Emergency (ER) | payer MEDICARE, MEDICAID ==
[2023-12-24] MEDS: Albuterol/Ipratropium 3.0-0.5 MG/3 ML Neb Soln NEB ONE (22:31)
[2023-12-24 22:32] VITALS: BP 141/109; PULSE 81
[2023-12-24 22:43] LABS: BASOPHILS PERCENT AUTO 0.3 % (0.0-1.0); EOSINOPHILS PERCENT AUTO 2.4 % (1.0-3.0); HEMATOCRIT 45.8 % (37.0-47.0); HEMOGLOBIN 14.8 g/dL (12.0-16.0); LYMPHOCYTES PERCENT AUTO 14.9 % (20.5-50.1); MEAN CORPUSCULAR HEMOGLOBIN 27.6 pg (27.0-34.0); MEAN CORPUSCULAR HGB CONC 32.3 g/dL (33.0-35.0); MEAN CORPUSCULAR VOLUME 85.3 fL (80-100); MONOCYTES PERCENT AUTO 7.3 % (2-8); NEUTROPHILS PERCENT AUTO 75.1 % (42.2-75.2); PLATELET COUNT,PLT 275 10^3/uL (150-450); RED BLOOD CELL COUNT 5.37 10^6/uL (4.2-5.4); WHITE BLOOD CELL COUNT,WBC 11.5 10^3/uL (5.0-10.0)
[2023-12-24 22:50] LABS: A/G RATIO 0.75; ALBUMIN 3.3 g/dL (3.4-5.0); ANION GAP 14.9 mEq/L (7-13); BILIRUBIN TOTAL 0.4 mg/dL (0.2-1.0); BUN/CREATININE RATIO 6.4 (No establ ref range); CALCIUM 8.7 mg/dL (8.5-10.1); CREATININE 1.09 mg/dL (0.55-1.02); EST CRCL DRUG DOSING (CG) 44.32 mL/min; POTASSIUM,K 3.9 mmol/L (3.5-5.1); PROTEIN TOTAL,TP 7.7 g/dL (6.4-8.2)
== END 2023-12-24 23:21 | disposition home or self-care (01) ==
LOC: DL.ED 21:58
DX: J41.8 Mixed simple and mucopurulent chronic bronchitis (principal); I11.0 Hypertensive heart disease with heart failure; I10 Essential (primary) hypertension; I25.10 Atherosclerotic heart disease of native coronary artery without angina pectoris; Z86.73 Personal history of transient ischemic attack (TIA), and cerebral infarction without residual deficits; E11.40 Type 2 diabetes mellitus with diabetic neuropathy, unspecified; E66.9 Obesity, unspecified; Z68.35 Body mass index [BMI] 35.0-35.9, adult; Z90.49 Acquired absence of other specified parts of digestive tract; Z79.84 Long term (current) use of oral hypoglycemic drugs; Z79.4 Long term (current) use of insulin; Z79.899 Other long term (current) drug therapy; Z88.6 Allergy status to analgesic agent; Z88.5 Allergy status to narcotic agent; Z88.8 Allergy status to other drugs, medicaments and biological substances
CPT/HCPCS: 36415; 80053; 84484; 85025; 93005; 99284; J7620-GY

== ENCOUNTER 2025-01-24 16:47 | Observation (INO) | payer MEDICARE, MEDICAID ==
[2025-01-24 17:39] LABS: BASOPHILS PERCENT AUTO 0.4 % (0.0-1.0); EOSINOPHILS PERCENT AUTO 0.0 % (1.0-3.0); LYMPHOCYTES PERCENT AUTO 7.7 % (20.5-50.1); MONOCYTES PERCENT AUTO 3.8 % (2-8); NEUTROPHILS PERCENT AUTO 88.1 % (42.2-75.2); PLATELET COUNT,PLT 332 10^3/uL (150-450); RED BLOOD CELL COUNT 5.26 10^6/uL (4.2-5.4); WHITE BLOOD CELL COUNT,WBC 14.8 10^3/uL (5.0-10.0)
[2025-01-24 18:01] LABS: A/G RATIO 0.8; ALANINE AMINOTRANSFERASE,ALT 33 U/L (14-59); ASPARTATE AMNIOTRANSFERASE,AST 21 U/L (15-37); BILIRUBIN TOTAL 0.4 mg/dL (0.2-1.0); BLOOD UREA NITROGEN,BUN 22 mg/dL (7-18); CHLORIDE,CL 96 mmol/L (98-107); CREATININE 1.46 mg/dL (0.55-1.02); EST CRCL DRUG DOSING (CG) 32.61 mL/min; POTASSIUM,K 4.6 mmol/L (3.5-5.1); PROTEIN TOTAL,TP 8.0 g/dL (6.4-8.2)
[2025-01-24] MEDS ORDERED: Albuterol 0.083% 2.5 MG/3 ML Neb Soln NEB PRN (18:02)
[2025-01-24] MEDS ORDERED: 50% Dextrose in Water 50 ML Syringe IVPUSH PRN ×2 (18:04→18:05)
[2025-01-24 18:05] LABS: CARBON DIOXIDE,CO2 28 mmol/L (21-32); SODIUM,NA 134 mmol/L (136-145)
[2025-01-24 18:07] LABS: ESTIMATED GFR 38 mL/min (>=60); GLUCOSE RANDOM 483 mg/dL (70-99)
[2025-01-24 18:55] LABS: APPEARANCE,URINE CLEAR (CLEAR); GLUCOSE,URINE 500 (NEGATIVE); OCCULT BLOOD,URINE TRACE-INTACT (NEGATIVE)
[2025-01-24 19:07] LABS: EPITHELIAL CELLS,URINE FEW /HPF (NOT SEEN)
[2025-01-24] MEDS: Insulin Regular, Human 100 Units/ML 10 ML Vial IV ONE (19:12)
[2025-01-24] MEDS: Insulin Glarg,Human.Rec.Analog 100 Unit/ML 10 ML Vial SUBCUT ONE (19:13)
[2025-01-24] MEDS: Heparin Sodium 5,000 Units/ML Vial SUBCUT SCH (21:38)
[2025-01-25 09:23] VITALS: BP 136/65; PULSE 59
== END 2025-01-25 10:14 | disposition home or self-care (01) ==
LOC: DL.ED 16:47 → DL.MS 17:34
PROVIDERS: ADMIT Internal Medicine; ATTEND Internal Medicine
DX: E11.65 Type 2 diabetes mellitus with hyperglycemia (principal); E78.00 Pure hypercholesterolemia, unspecified; E66.9 Obesity, unspecified; I25.10 Atherosclerotic heart disease of native coronary artery without angina pectoris; I11.0 Hypertensive heart disease with heart failure; I50.9 Heart failure, unspecified; Z88.5 Allergy status to narcotic agent; Z88.8 Allergy status to other drugs, medicaments and biological substances; Z79.84 Long term (current) use of oral hypoglycemic drugs; Z79.4 Long term (current) use of insulin; Z79.899 Other long term (current) drug therapy
CPT/HCPCS: 36415; 71045; 80053; 81001; 82947; 83735; 83880; 84484; 85025; 86140; 87086; 99285; A9270; J0696; J1644; J1815; 87088; 87186